=== PATIENT | female | born 1985 | race Caucasian/White ===

== ENCOUNTER → 2016-11-30 | Outpatient (CLI) | payer OTHER | LOC: SUN.DIA 08:41 | DX: O24.419 Gestational diabetes mellitus in pregnancy, unspecified control (principal); Z3A.30 30 weeks gestation of pregnancy; Z71.3 Dietary counseling and surveillance | CPT/HCPCS: G0108 ==

== ENCOUNTER → 2016-12-15 | Outpatient (CLI) | payer OTHER | LOC: SUN.DIA 10:57 | DX: O24.419 Gestational diabetes mellitus in pregnancy, unspecified control (principal); Z3A.32 32 weeks gestation of pregnancy; Z71.3 Dietary counseling and surveillance | CPT/HCPCS: G0108 ==

== ENCOUNTER 2016-12-27 10:23 | Inpatient (IN) | payer OTHER ==
[~2016-12-27] VITALS: Ht 160 cm; Wt 73.2 kg
[2017-02-04] VITALS (25 sets, daily range): BP systolic 111–136; BP diastolic 53–86; PULSE 45–75; TEMP 97.4–98.5
[2017-02-04] MEDS ORDERED: PRENATAL (06:46)
[2017-02-04 08:20] LABS: HEMOGLOBIN 12.4 g/dl (12.5-16.0); MEAN CELL VOLUME 88 fl (80.0-100.0); MEAN CORPUSCULAR HEMOGLOBIN 30 pg (27.0-31.0); MEAN CORPUSCULAR HGB CONC 34 g/dl (33.0-37.0); MEAN PLATELET VOLUME 11.5 fl (7.4-10.4); PLATELET COUNT 141 K/mm3 (130-400); WHITE BLOOD COUNT 12.1 K/mm3 (4.8-10.8)
[2017-02-04 08:21] LABS: HEMATOCRIT 36.2 % (37.0-47.0)
[2017-02-04 08:22] LABS: ADD PATHOLOGY DIFF REVIEW NO
[2017-02-04 09:43] LABS: BAND 16 % (0-10); EOSINOPHIL 2 % (0-4); LYMPHOCYTE 20 % (20.0-51.0); NEUTROPHILS 62 % (42.0-75.2); PLATELET ESTIMATE NORMAL (NORMAL); TOTAL CELLS COUNTED 100
[2017-02-04] MEDS ORDERED: MOTRIN 800800 MG/TAB PO (16:50)
[2017-02-04] MEDS ORDERED: PERCOCET 325 MG1 TA2 PO (16:50)
[2017-02-05 00:20] VITALS: BP 105/55; PULSE 44; TEMP 98.1
[2017-02-05 03:30] VITALS: BP 112/75; PULSE 50; TEMP 98
[2017-02-05 08:08] VITALS: BP 112/68; PULSE 52; TEMP 98
== END 2017-02-05 12:50 | disposition home or self-care (01) | DRG 775 ==
LOC: LDR 02-04 07:20 → OB 02-04 13:50 → LDR 02-11 10:23
PROVIDERS: Obstetrics & Gynecology
PROC: 10E0XZZ Delivery of Products of Conception, External Approach (ICD-10-PCS; principal; 2017-02-04)
DX: O24.420 Gestational diabetes mellitus in childbirth, diet controlled (principal); Z3A.39 39 weeks gestation of pregnancy; Z37.0 Single live birth
CPT/HCPCS: J2590; J3010; J7120

== ENCOUNTER → 2017-01-12 | Outpatient (CLI) | payer OTHER | LOC: SUN.DIA 10:09 | DX: O24.419 Gestational diabetes mellitus in pregnancy, unspecified control (principal); Z3A.36 36 weeks gestation of pregnancy; Z71.3 Dietary counseling and surveillance | CPT/HCPCS: G0108 ==

== ENCOUNTER 2017-03-29 00:41 | Emergency (ER) | payer OTHER ==
[~2017-03-29] VITALS: Ht 160 cm; Wt 63.4 kg
[~2017-03-29 00:41] MED LIST: MOTRIN 800800 MG/TAB PO; PERCOCET 325 MG1 TA2 PO; PRENATAL
[2017-03-29 00:44] VITALS: TEMP 97.9
[2017-03-29 01:56] LABS: INFLUENZA A NEGATIVE; INFLUENZA B NEGATIVE
[2017-03-29] MEDS ORDERED: ZOFRAN ODT4 MG PO (02:34)
[2017-03-29 02:45] VITALS: BP 114/66; PULSE 62
== END 2017-03-29 02:45 | disposition home or self-care (01) ==
LOC: COL.ER 00:41
PROVIDERS: Nurse Practitioner
DX: R11.2 Nausea with vomiting, unspecified (principal); R19.7 Diarrhea, unspecified
CPT/HCPCS: J2405; J7030

== ENCOUNTER → 2019-10-15 | Outpatient (CLI) | payer OTHER ==
[~2019-10-15] MED LIST changes: +IBU600 MG PO; +ZOFRAN ODT4 MG PO
== END ==
LOC: ZCOL.LAB
DX: Z20.828 Contact with and (suspected) exposure to other viral communicable diseases (principal)

== ENCOUNTER 2019-10-19 06:20 | Inpatient (IN) | payer OTHER ==
[2019-10-19] VITALS (41 sets, daily range): BP systolic 100–142; BP diastolic 60–95; PULSE 44–110; TEMP 97.6–97.7
[~2019-10-19] VITALS: Ht 160 cm; Wt 71.8 kg
[~2019-10-19 06:20] MED LIST changes: -IBU600 MG PO
--- NOTE | 2019-10-19 08:21 | NUR ---
Pt and spouse arrive ambulatory to unit at 0730 for scheduled induction of labor. Pt changed into gown, EFM explained and placed. Pt denies any vaginal bleeding or leaking of fluid, reports frequent [place] contractions with a few "real" contractions, and reports good movement. Vitals taken, IV started in LW, labs drawn, then LR started per protocol. Consents explained and signed, assessment complete. 0802 - 20 min FHR strip complete. Moderate variability with good accelerations and no decelerations noted. Baseline FHR 140. Pitocin started at this time at 2mu/ml/hr per induction protocol.
[2019-10-19 08:26] LABS: HEMOGLOBIN 11.3 g/dl (12.5-16.0); MEAN CELL VOLUME 85 fl (80.0-100.0); MEAN CORPUSCULAR HEMOGLOBIN 28 pg (27.0-31.0); MEAN CORPUSCULAR HGB CONC 33 g/dl (33.0-37.0); MEAN PLATELET VOLUME 12.7 fl (7.4-10.4); PLATELET COUNT 171 K/mm3 (130-400); RED BLOOD COUNT 4.04 M/mm3 (4.10-5.30); REDCELL DISTRIBUTION WIDTH-CV 13.2 % (11.5-14.5)
[2019-10-19 08:31] LABS: HEMATOCRIT 34.5 % (37.0-47.0)
[2019-10-19 08:43] LABS: BAND 14 % (0-10); LYMPHOCYTE 12 % (20.0-51.0); NEUTROPHILS 70 % (42.0-75.2); PLATELET ESTIMATE NORMAL (NORMAL)
[2019-10-19] MEDS ORDERED: IBU600 MG PO (16:29)
--- NOTE | 2019-10-19 17:39 | NUR ---
1410 - Pt breathing through contractions, tolerating well. Pt requesting Stadol for pain management. Stadol given IV at 1413. Pt reports improvement. 1450 - Variable decels with contractions continue. FHR into 90s-100s, recovering to baseline within 10-15 seconds. Pt reporting increased pressure with contractions. SVE at 1455 6-7/100/-1. 1520 - Pt reports increasing pressure and discomfort with contractions. SVE 7/100/0. Variable decels continue, accelerations and moderate variability noted. Dr. Puckett notified. 1534 - Late decels with last two contractions lasting approximately 20 seconds before returning to baseline, moderate variability noted. SVE 9/100/0, pt feeling urge to push. Dr. Puckett notified. 1544 - Dr. Puckett to pt bedside. SVE per provider 9-10/100/0. Pt and room prepped for delivery. Pt starts pushing with contractions with Dr. Puckett and RN at bedside. 1558 - Per physician, anterior lip of cervix remains. Pt to breathe through contractions for next 10-15 minutes. Pt repositioned sitting upright, breathing through contractions. Dr. Puckett and RN remain at bedside. 1605 - Pt feeling strong urge to push. SVE per provider 10/100/+1. Pt to start pushing again with contractions. 1614 - Male infant delivered spontaneously by Dr. Puckett. Infant placed on mother's abdomen where dried and stimulated. Care of transferred to Jossy Choi RN of nursery. Cord blood collected. 1618 - Placent spontaneously delivered. Pitocin started per protocol. Pt perineum intact per Dr. Puckett. Pericare provided, pt repositioned for comfort. Ice pack placed on perineum. 1625 - Fundal massage produced several clots approximately 2in by 2in. No free bleeding noted. Fundus firm. Peripad changed, new ice pack placed. 1640 - Fundal massage produced small amount of free bleeding, no clots. Fundus firm.
--- NOTE | 2019-10-19 18:40 | NUR ---
Pt transferred to room 207 ambulatory. Oriented to room and bed. Call light within reach. Plan of care reviewed.
[2019-10-20 00:20] VITALS: BP 110/71; PULSE 61
[2019-10-20 03:30] VITALS: BP 82/42; PULSE 49; TEMP 98.6
[2019-10-20 07:15] VITALS: BP 106/71; PULSE 50; TEMP 98.2
[2019-10-20 08:14] LABS: HEMATOCRIT 30.6 % (37.0-47.0); HEMOGLOBIN 9.8 g/dl (12.5-16.0)
[2019-10-20 12:30] VITALS: BP 107/65; PULSE 66; TEMP 98.1
[2019-10-20 18:00] VITALS: BP 103/62; PULSE 54; TEMP 97.8
== END 2019-10-20 18:55 | disposition home or self-care (01) | DRG 807 ==
LOC: OB 06:20 → LDR 07:24 → OB 07:24
PROVIDERS: ADMIT Obstetrics & Gynecology
PROC: 10E0XZZ Delivery of Products of Conception, External Approach (ICD-10-PCS; principal; 2019-10-19)
PROC: 10907ZC Drainage of Amniotic Fluid, Therapeutic from Products of Conception, Via Natural or Artificial Opening (ICD-10-PCS; 2019-10-19)
PROC: 3E033VJ Introduction of Other Hormone into Peripheral Vein, Percutaneous Approach (ICD-10-PCS; 2019-10-19)
DX: O24.420 Gestational diabetes mellitus in childbirth, diet controlled (principal); Z37.0 Single live birth; Z3A.38 38 weeks gestation of pregnancy
CPT/HCPCS: J0595; J2590; J7120